=== PATIENT | female | born 1990 | race African-American/Black ===

== ENCOUNTER 2016-06-01 17:25 | Emergency (ER) | payer MEDICAID ==
[~2016-06-01] VITALS: Ht 142.2 cm; Wt 50.0 kg
[~2016-06-01 17:25] MED LIST: BACT800T5 PO; CEPH-460 PO; ZOFR4TAB PO
[2016-06-01 17:29] VITALS: BP 179/107; PULSE 70; RESP 16; TEMP 97.7; O2SAT 100
[2016-06-01] MEDS ORDERED: SODIUM CHLOR 0.9% 1000 ML INJ 1,000 ML IV SCH (17:38)
[2016-06-01] MEDS ORDERED: PROMETHAZINE INJ 25 MG/ML VIAL IM ONE (17:45)
--- NOTE | 2016-06-01 18:02 | PD ---
HPI Chief Complaint: GI Complaint Time Seen by Provider: 17:45 Travel History International Travel<30 days: No Contact w/Intl Traveler<30days: No Traveled to known affect area: No History of Present Illness HPI Patient's 25-year-old female presenting with nausea and vomiting. She states this been present since 11 AM this morning. She reports vomiting up 30 times since then. It is clear and bilious. Denies hematemesis. She states she started developing epigastric and suprapubic pain after the vomiting. She's had a bowel movement today but states she had bowel movements yesterday and has no constipation or diarrhea. Although the pain is intermittent and it is sharp in nature and does not radiate and is a 10 out of 10 in severity. She denies dysuria, increased urinary urgency and frequency. She states she has had a vaginal discharge for one week, white slightly foul-smelling. She denies any recent sexual activity however. She denies any history of abdominal surgeries. She denies current or missed menstrual cycle. She denies any food intolerances stating she ate biscuits and gravy this morning and does have an appetite but she has not been able to eat or drink due to the vomiting. She endorses tobacco use and daily marijuana use, denies other illicit drugs and alcohol use. [facility] Past Medical History Medical History: Denies Significant Hx Cardiovascular Problems: Yes (NO MEDS) Immunizations Current: Yes Influenza Vaccination: Yes ?: Not LMP: 06/01/2016 Menopausal: No : 4 Para: 3 Miscarriage: 1 : 0 Past Surgical History Surgical History: No Previous Surgery Social History Alcohol Use: No Tobacco Use: Yes (1 PPD) Substance Use: Yes (Marijuana EVERYDAY) Allergies-Medications (Allergen,Severity, Reaction): Coded Allergies: Chocolate (Verified Allergy, Severe, 06/01/16) Ibuprofen (Verified Allergy, Severe, 06/01/16) SWELLING *MDRO Multi-Drug Resistant Organism (Verified Adverse Reaction, Unknown, ) 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 She frequently has to stop to vomit during history and physical. SKIN: Warm and dry. Good turgor without tenting. HEAD: Normocephalic and atraumatic. EYES: PERRL bilaterally, 5mm. EOMI bilaterally. No injection or icterus present. No proptosis. Lids without edema or erythema. ENT: Buccal mucosa pink and moist. Oropharynx free of erythema, tonsillar hypertrophy, masses, swelling, asymmetry and exudates. Uvula midline and airway patent. NECK: Supple, no midline tenderness, crepitus or step-offs. Trachea midline, no JVD. No cervical or facial lymphadenopathy. CARDIOVASCULAR: Regular rate and rhythm without murmurs, rubs, clicks or gallops. Radial and posterior tibial pulses 2+ bilaterally. No pedal edema. RESPIRATORY: Clear to auscultation bilaterally with symmetrical rise and fall, no distress or use of accessory muscles. GASTROINTESTINAL: Moderate epigastric and suprapubic tenderness. No masses palpated. No rebound or guarding. Nondistended. Normal bowel sounds all 4 quadrants. No masses or organomegaly present. MUSCULOSKELETAL: No gait disturbances. Patient freely moving all four extremities spontaneously. Extremities without clubbing, cyanosis, or edema. No obvious deformities. NEUROLOGIC: CN II-XII grossly intact. Awake and alert. Motor grossly within normal limits. Normal speech. PSYCHIATRIC: Appropriate mood and affect; insight and judgment normal. Data Data Last Documented VS Vital Signs Date Time Temp Pulse Resp B/P Pulse Ox O2 Delivery O2 Flow Rate FiO2 06/01/16 20:00 72 16 138/88 98 Room Air 06/01/16 17:29 97.7 Orders Promethazine Inj (Phenergan Inj) (06/01/16 17:45) Beta Hcg (Quant/Titer) (06/01/16 17:38) Complete Blood Count With Diff (06/01/16 17:38) Comprehensive Metabolic Panel (1/16/17 17:38) Lipase (06/01/16 17:38) Urinalysis - C+S If Indicated (06/01/16 17:38) Iv Access Insert/Monitor (06/01/16 17:38) Ecg Monitoring (06/01/16 17:38) Oximetry (06/01/16 17:38) Sodium Chlor 0.9% 1000 Ml Inj (Ns 1000 M (06/01/16 17:38) Ed Urine Pregnancytest Poc (06/01/16 17:38) Ct Abd/Pel W Iv Contrast(Rout) (06/01/16 18:20) Sodium Chloride 0.9% Flush (Ns Flush) (06/01/16 18:30) Pantoprazole Inj (Protonix Inj) (06/01/16 18:30) Metoclopramide Inj (Reglan Inj) (06/01/16 18:45) Iohexol 350 Inj (Omnipaque 350 Inj) (06/01/16 19:07) Potassium Chloride (Kcl) (06/01/16 19:30) Labs Laboratory Tests Test 06/01/16 06/01/16 17:55 18:15 White Blood Count 4.7 TH/MM3 Red Blood Count 4.19 MIL/MM3 Hemoglobin 12.3 GM/DL Hematocrit 36.5 % Mean Corpuscular Volume 87.0 FL Mean Corpuscular Hemoglobin 29.2 PG Mean Corpuscular Hemoglobin 33.6 % Concent Red Cell Distribution Width 13.2 % Platelet Count 170 TH/MM3 Mean Platelet Volume 9.2 FL Neutrophils (%) (Auto) 49.4 % Lymphocytes (%) (Auto) 40.0 % Monocytes (%) (Auto) 8.9 % Eosinophils (%) (Auto) 0.8 % Basophils (%) (Auto) 0.9 % Neutrophils # (Auto) 2.3 TH/MM3 Lymphocytes # (Auto) 1.9 TH/MM3 Monocytes # (Auto) 0.4 TH/MM3 Eosinophils # (Auto) 0.0 TH/MM3 Basophils # (Auto) 0.0 TH/MM3 CBC Comment DIFF FINAL Differential Comment Sodium Level 139 MEQ/L Potassium Level 3.4 MEQ/L Chloride Level 103 MEQ/L Carbon Dioxide Level 24.9 MEQ/L Anion Gap 11 MEQ/L Blood Urea Nitrogen 7 MG/DL Creatinine 0.73 MG/DL Estimat Glomerular Filtration 116 ML/MIN Rate Random Glucose 111 MG/DL Calcium Level 8.5 MG/DL Total Bilirubin 0.4 MG/DL Aspartate Amino Transf 23 U/L (AST/SGOT) Alanine Aminotransferase 20 U/L (ALT/SGPT) Alkaline Phosphatase 85 U/L Total Protein 8.4 GM/DL Albumin 4.2 GM/DL Lipase 59 U/L Human Chorionic Gonadotropin, LESS THAN 1 Quant MIU/ML Urine Color YELLOW Urine Turbidity HAZY Urine pH 7.0 Urine Specific [place] 1.021 Urine Protein TRACE mg/dL Urine Glucose (UA) NEG mg/dL Urine Ketones 10 mg/dL Urine Occult Blood TRACE Urine Nitrite NEG Urine Bilirubin NEG Urine Urobilinogen LESS THAN 2.0 MG/DL Urine Leukocyte Esterase NEG Urine RBC 11 /hpf Urine WBC 4 /hpf Urine Squamous Epithelial 4 /hpf Cells Urine Amorphous Sediment OCC Urine Mucus FEW /lpf Microscopic Urinalysis Comment CULT NOT INDICATED MDM Medical Decision Making Medical Screen Exam Complete: Yes Emergency Medical Condition: Yes Differential Diagnosis Gastritis versus gastroenteritis versus cystitis versus bowel instruction versus pancreatitis versus cholecystitis Narrative Course Patient's 25-year-old female reports no chronic medical conditions presenting with severe nausea and vomiting that began today. She reports 30 episodes, no hematemesis. She required Zofran, promethazine and Reglan to resolve her vomiting here. Was given a liter normal saline bolus. She has some tenderness in the epigastrium and in the suprapubic region. She initially told me she's had some new vaginal discharge however after her pain and vomiting is well controlled she tells me that this is her usual physiologic discharge and is not painful or foul smelling. She declines pelvic exam. CBC unremarkable. Metabolic panel showed potassium 3.4 which was replaced with potassium chloride 20 MB Q's orally. Glucose 111. Lipase 59, hCG less than 1. Urinalysis shows 10 ketones, trace occult blood and [address] abdomen and pelvis with contrast shows a mild enteritis involving the mid jejunum. No obstruction or high-grade inflammatory changes. There are small bilateral ovarian cyst present however she has no tenderness in this region. After the fluids were given the patient was seen to ambulate to and from the restroom several times without any apparent difficulty. At this time she'll be discharged with a diagnosis of gastroenteritis given a prescription for Zofran and Phenergan to use interchangeably for her nausea as well as Bentyl and Protonix. Recommend a bland diet and adequate hydration. Additionally she has been smoking marijuana daily for "as long as she can remember ". The plan is a young teenager she states. I stated the patient that there is a concern for cyclic vomiting syndrome with excessive marijuana use and recommended that she discontinue this.See discharge paperwork for further instructions. The plan was discussed with the patient who acknowledged their understanding and agreement. Reinforced the follow-up with primary care is critically important. Patient instructed on emergent conditions that should prompt return to ED. Diagnosis Primary Impression: Gastroenteritis Additional Impression: Marijuana use, continuous Patient Instructions: Gastroenteritis (ED), General Instructions Additional Instructions: Take medications as prescribed Drink lots of fluids to stay well-hydrated Recommend a bland diet(bananas, rice, applesauce, toast etc.) 24 hours and then advance slowly as tolerated Suggest discontinuing marijuana use Follow-up with PCP in one to 2 days Return to the ED for any acute worsening of symptoms Med/Other Pt SpecificInfo: Prescription(s) given Scripts Pantoprazole (Protonix)40 Mg Tab40 Mg PO DAILY #30 TAB Ref 0 Prov:Dontae Watt MD 06/01/16 Dicyclomine (Bentyl)10 Mg Cap10 Mg PO TID PRN (DIARRHEA) #12 CAP Ref 0 Take for diarrhea or cramps Prov:Dontae Watt MD 06/01/16 Promethazine 12.5 Mg Tab12.5 Mg PO Q6H PRN (NAUSEA OR VOMITING) #12 TAB Ref 0 Either Promethazine OR Zofran for Nausea, NOT both Prov:Dontae Watt MD 06/01/16 Ondansetron Odt (Zofran Odt)4 Mg Tab4 Mg SL Q8HR PRN (Nausea/Vomiting) #12 TAB Prov:Dontae Watt MD 06/01/16 Disposition: 01 DISCHARGE HOME Condition: Stable Simon Hernandez III Jun 01, 2016 18:02
[2016-06-01 18:14] LABS: AUTOMATED NEUTROPHIL # 2.3 TH/MM3 (1.8-7.7); BASOPHIL % 0.9 % (0.0-2.0); EOSINOPHIL % 0.8 % (0.0-4.0); HEMATOCRIT 36.5 % (35.0-46.0); HEMO FLAGS DIFF FINAL; LYMPHOCYTE # 1.9 TH/MM3 (1.0-4.8); MEAN CORPUSCULAR HEMOGLOBIN 29.2 PG (27.0-34.0); MEAN CORPUSCULAR HGB CONC 33.6 % (32.0-36.0); MONO % 8.9 % (0.0-8.0); NEUT % 49.4 % (16.0-70.0); PLATELET COUNT 170 TH/MM3 (150-450); RED BLOOD COUNT 4.19 MIL/MM3 (4.00-5.30); RED CELL DISTRIBUTION WIDTH 13.2 % (11.6-17.2); WHITE BLOOD COUNT 4.7 TH/MM3 (4.0-11.0)
[2016-06-01 18:23] VITALS: BP 111/66; PULSE 106; RESP 16; O2SAT 96
[2016-06-01 18:30] VITALS: BP 201/116; PULSE 75; RESP 16; O2SAT 96
[2016-06-01] MEDS ORDERED: SODIUM CHLORIDE 0.9% FLUSH 5 ML FLUSH IVF PRN (18:30)
[2016-06-01] MEDS ORDERED: PANTOPRAZOLE SODIUM 40 MG VIAL IVP ONE (18:30)
[2016-06-01 18:31] LABS: BLOOD, URINE TRACE (NEG); COMMENT (UR) CULT NOT INDICATED; CULTURE IF INDICATED CULT NOT INDICATED; GLUCOSE,URINE NEG (NEG); KETONE, URINE 10 mg/dL (NEG); MUCUS URINE FEW /lpf (OCC); NITRITE,URINE NEG (NEG); SQUAMOUS EPITHELIAL CELL URINE 4 /hpf (0-5); URINE COLOR YELLOW (YELLW/STRAW)
[2016-06-01] MEDS ORDERED: METOCLOPRAMIDE HCL 10 MG/2 ML VIAL IV PUSH ONE (18:45)
[2016-06-01 18:48] LABS: ANION GAP 11 MEQ/L (5-15); AST (GOT) 23 U/L (15-37); BICARBONATE 24.9 MEQ/L (21.0-32.0); BLOOD UREA NITROGEN 7 MG/DL (7-18); CHLORIDE 103 MEQ/L (98-107); GLOMERULAR FILTRATION RATE 116 ML/MIN (>89); POTASSIUM 3.4 MEQ/L (3.5-5.1); SODIUM (NA) 139 MEQ/L (136-145)
[2016-06-01 18:54] LABS: ALKALINE PHOSPHATASE 85 U/L (45-117); ALT (GPT) 20 U/L (10-53); BETA HCG QUANT LESS THAN 1 MIU/ML (0-5); TOTAL BILIRUBIN ADULT 0.4 MG/DL (0.2-1.0)
[2016-06-01] MEDS ORDERED: IOHEXOL 350 MG/ML 10 ML VIAL (for RAD DIAG) IV ONE (19:07)
--- NOTE | 2016-06-01 19:26 | RADRPT ---
EXAM DATE/TIME: 06/01/2016 19:05 [facility] COMPARISON: No previous studies available for comparison. INDICATIONS : Nausea, vomiting and abdominal pain. IV CONTRAST: 94 cc Omnipaque 350 (iohexol) IV ORAL CONTRAST: No oral contrast ingested. RADIATION DOSE: 4.50 CTDIvol (mGy) MEDICAL HISTORY : Cardiovascular disease. MRSA SURGICAL HISTORY : None. ENCOUNTER: Initial ACUITY: 1 day PAIN SCALE: 6/10 LOCATION: Bilateral lower quadrant TECHNIQUE: Volumetric scanning of the abdomen and pelvis was performed. Using automated exposure control and ad justment of the mA and/or kV according to patient size, radiation dose was kept as low as reasonably achievable to obtain optimal diagnostic quality images. FINDINGS: Liver appears slightly fatty infiltrated. CT appearance of the gallbladder within normal limits. The spleen, pancreas, adrenal glands and kidneys appear normal. A few loops of small bowel appear to have thick wall in the left mid abdomen, appears to primarily in volve the mid jejunum. No high-grade inflammatory changes are seen. No obstruction. Appendix within n ormal limits. There is a 2.1 cm cyst of the left ovary. Several cysts up to 12 mm are suspected of the right ovary. No free fluid demonstrated. There is a 4 mm round calcification in the right side of the pelvic cavi ty that I believe is a phlebolith. No hydronephrosis or hydroureter demonstrated. Visualized lung bases are clear. Visualized osseous structures are within normal limits. CONCLUSION: 1. Mild enteritis involving the mid jejunum suspected. No obstruction or high-grade inflammatory mendez ges are demonstrated. 2. Small bilateral ovarian cysts. No free fluid. Simon Martin MD on June 01, 2016 at 19:19 Board Certified Radiologist. This report was verified electronically.
[2016-06-01] MEDS ORDERED: POTASSIUM CHLORIDE 20 MEQ CONTROLLED RELEASE TAB PO ONE (19:30)
[2016-06-01] MEDS ORDERED: PROM12.54 PO (19:49)
[2016-06-01] MEDS ORDERED: DICY10 PO (19:49)
[2016-06-01] MEDS ORDERED: ZOFR4TAB3 SL (19:49)
[2016-06-01] MEDS ORDERED: PROT40TA PO (19:52)
[2016-06-01 20:00] VITALS: BP 138/88; PULSE 72; RESP 16; O2SAT 98
== END 2016-06-01 20:44 | disposition home or self-care (01) ==
LOC: NEPA 17:25
DX: K52.9 Noninfective gastroenteritis and colitis, unspecified (principal); F12.90 Cannabis use, unspecified, uncomplicated; R10.9 Unspecified abdominal pain; N89.8 Other specified noninflammatory disorders of vagina; Z72.0 Tobacco use
CPT/HCPCS: 74177; 80053; 81001; 83690; 84702; 84703; 85025; 96361; 96372; 96374; 96375; 99284; C9113; J2550; J2765; J7030; Q9967